=== PATIENT | female | born 1960 | race Caucasian/White ===

== ENCOUNTER 2016-12-21 23:42 | Emergency (ER) | payer OTHER ==
[~2016-12-21] VITALS: Ht 170.2 cm; Wt 70.8 kg
[2016-12-22] MEDS ORDERED: IBUPROFEN 600 MG TAB PO ONE (00:45)
[2016-12-22 01:10] LABS: Basophils # (auto) 0 uL; CONDITION Y; Eosinophils # (auto) 0 uL; Eosinophils % (auto) 0.1 % (0.0-7.0); Hematocrit 35.9 % (36.0-46.0); Hemoglobin 11.8 g/dL (12.2-16.2); Lymphocytes # (auto) 0.4 uL; Lymphocytes % (auto) 2.6 % (10.0-50.0); Mean Corpuscular Hemoglobin 29.6 pg (28.0-32.0); Mean Corpuscular Hgb Conc. 32.9 g/dL (32.0-36.0); Mean Corpuscular Volume 89.9 fL (80.0-100.0); Mean Platelet Volume 7.2 fL (7.4-10.4); Monocytes # (auto) 0.9 uL; Monocytes % (auto) 5.9 % (0.0-12.0); Neutrophils # (auto) 13.5 uL; Neutrophils % (auto) 91.4 % (37.0-80.0); Platelet Count (auto) 370 10^3/uL (140-450); Red Cell Distribution Width 15.6 % (11.6-16.0); White Blood Cell 14.8 10^3/uL (4.4-10.8)
[2016-12-22 01:20] LABS: Urine Bilirubin Negative (Negative); Urine Blood Negative /uL (Negative); Urine Color Yellow (Yellow); Urine Glucose Normal (Normal); Urine Mucus FEW (None Seen); Urine Nitrite Negative (Negative); Urine RBC <1 /hpf (0 - 4); Urine Urobilinogen Normal (Negative)
[2016-12-22 01:21] LABS: Urine Ketone 1+ (Negative)
[2016-12-22 01:26] LABS: INR 0.97 (0.9-1.15); Partial Thromboplastin Time 28.5 sec (22.64-33.71); Prothrombin Time 10.6 sec (9.37-12.3)
[2016-12-22 01:28] LABS: Albumin 2.9 g/dL (3.4-5.0); Anion Gap 8 (5-15); Blood Urea Nitrogen 15 mg/dL (7-18); Carbon Dioxide 28 mmol/L (21-32); Chloride 101 mmol/L (98-107); Glucose 123 mg/dL (74-106); Potassium 3.6 mmol/L (3.5-5.1); Sodium 137 mmol/L (136-145)
[2016-12-22 01:32] LABS: BUN/Creatinine Ratio 23.1; GFR African American 121 mL/min; GFR Non-African American 100 mL/min
[2016-12-22 01:37] LABS: B-Type Natriuretic Peptide 14.7 pg/mL (0-100); Temperature: 22.2 C (20.0-25.0)
[2016-12-22 01:43] LABS: Alkaline Phosphatase 121 U/L (45-117); Aspartate Aminotransferase 12 U/L (15-37); Bilirubin, Total 0.6 mg/dL (0.2-1.0); Total Protein 7.1 g/dL (6.4-8.2)
[2016-12-22 01:50] LABS: Allen Test Yes; Base Excess -0.2 mmol/L (-2.0-2.0); Blood 02Sat 89.2 % (96-100); Blood COHb 1.4 % (0.5-1.5); Blood MetHb 0.3 % (0.0-1.5); HCO3 23.7 mmol/L (22-26.0); HHb 10.6 % (0.0-5.0); MODE NASAL CANNULA; O2Hb 87.7 % (94.0-97.0); PCO2 36.4 mmHg (35.0-45.0); PCO2(T) 24.6 mmHg (35.0-45.0); PO2(T) 32.2 mmHg (80.0-100.0); Sample Type Arterial; pH 7.432 (7.350-7.450)
[2016-12-22] MEDS ORDERED: HYDROmorphone HCL 2 MG/ML VL IV ONE ×2 (02:00→05:45)
[2016-12-22] MEDS ORDERED: ONDANSETRON HCL 4 MG/2 ML VIAL IV ONE (02:00)
[2016-12-22] MEDS ORDERED: IOHEXOL 350 MG/ML 100ML IJ ONE (02:44)
[2016-12-22 06:10] VITALS: BP 102/76
== END 2016-12-22 07:01 | disposition home or self-care (01) ==
LOC: EDBD 23:42 → ER 12-22
DX: S42.002A Fracture of unspecified part of left clavicle, initial encounter for closed fracture (principal); S22.42XA Multiple fractures of ribs, left side, initial encounter for closed fracture; X58.XXXA Exposure to other specified factors, initial encounter; Y93.89 Activity, other specified; Y92.89 Other specified places as the place of occurrence of the external cause; Y99.8 Other external cause status; R07.89 Other chest pain; I10 Essential (primary) hypertension
CPT/HCPCS: 36415; 36600; 71010; 71275; 80053; 81001; 82805; 83605; 83735; 83880; 84484; 85025; 85379; 85610; 85730; 87040; 93005; 96374; 96375; 99285; J1170; J2405; Q9967

== ENCOUNTER 2024-09-15 17:06 | Inpatient (IN) | payer OTHER ==
[~2024-09-15] VITALS: Ht 167.6 cm; Wt 84.7 kg
--- NOTE | 2024-09-15 17:30 | ED.PDOC ---
Psychiatric HPI Comments 63 y/o F, BIBA, with PMHx of depression presents to the ED for CC of overdose. Per EMS, patient is coming from home where a family member called emergency medical personal due to patient ingesting an unknown amount of pills. EMS reports, possible ingestion of Morphine as it was recently prescribed; unknown time of ingestion. EMS comments, on possible stressor being husbands passing. Upon arrival to ED, patient was given 1mg of Narcan with no affect. No other symptoms or modifying factors present at this time due to patient being A&Ox2. Chief Complaint: Overdose Time Seen by MD: 17:00 Primary Care Provider: ELVIRA Lee Notes: Nurses Notes, Cleaning Team Member Notes, Medications, Allergies Information Source: Emergency Med Personnel Mode of Arrival: EMS Severity of Pain: None Severity of Mental Status: Moderate Severity of Symptoms: Moderate Timing: Hours Duration: Since onset Prehospital treatment: None Presents with: Other (ingestion, disorientation) Attempt: Ingestion Ingestion: Intentional, Drug(s) Ingested Current substance abuse: Unknown History of: Depression Quality: None Associated signs and symptoms: Depression Past Medical History PAST MEDICAL HISTORY: Depression, HTN Surgical History: Denies all surgeries ADULT CARE PROVIDER History: No Pertinent ADULT CARE PROVIDER History Family History Family History: Unknown Social History Smoker: Non-Smoker Alcohol: Denies ETOH Use Drugs: Denies Drug Use Lives In: Home Psychiatric: reports: suicidal Unable to Obtain due to: Other (A&OX2) Physical Exam General Appearance: Obese, Severe Distress, Other (Altered mental status) HEENT: Normal ENT Inspection, Pharynx Normal, TMs Normal Neck: Full Range of Motion, Non-Tender, Normal, Normal Inspection Respiratory: Chest Non-Tender, Lungs Clear, No Accessory Muscle Use, No Respiratory Distress, Normal Breath Sounds Cardiovascular: No Edema, No JVD, No Murmur, No Gallop, Normal Peripheral Pulses, Regular Rate/Rhythm Breast Exam: Deferred Gastrointestinal: No Organomegaly, Non Tender, No Pulsatile Mass, Normal Bowel Sounds, Soft Genitalia: Deferred Pelvic: Deferred Rectal: Deferred Extremities: No calf tenderness, Normal capillary refill, Pedal edema Musculoskeletal : Apperance: Normal Neurologic: customer contact specialist II-XII nml as Tested, Motor Weakness, No Sensory Deficits, Other (Altered mental status) Cerebellar Function: Unable to Test Reflexes: Normal Skin: Dry, Pallor, Warm Lymphatic: No Adenopathy EKG EKG : Pulse Rate (adult): 97 [place]: Normal Cardiac Rhythm: NSR Block: None ST: Nonsp Was a procedure done? Was a procedure done?: No Psych Differential Dx Psych. Differential Dx: Depression OD Differential Dx: Depression, Drug Overdose, Intentional, Suicidal Attempt X-Ray, Labs, Meds, VS Vital Signs Date Time Temp Pulse Resp B/P (MAP) Pulse Ox O2 Delivery O2 Flow Rate FiO2 09/15/24 18:17 97 09/15/24 17:58 98.5 83 15 144/74 (97) 95 98.5 09/15/24 17:58 83 15 95 Nasal Cannula* 2 28 09/15/24 17:20 97 09/15/24 17:15 98.9 101 10 149/79 (102) 95 98.9 Lab Test 09/15/24 17:43 Range/Units White Blood Count 7.3 4.4-10.8 10^3/uL Red Blood Count 5.43 H 4.0-5.20 10^6/uL Hemoglobin 13.6 12.2-16.2 g/dL Hematocrit 45.0 36.0-46.0 % Mean Corpuscular Volume 82.8 80.0-100.0 fL Mean Corpuscular Hemoglobin 25.0 L 28.0-32.0 pg Mean Corpuscular Hemoglobin Concent 30.2 L 32.0-36.0 g/dL Red Cell Distribution Width 15.8 H 11.8-14.3 % Platelet Count 163 140-450 10^3/uL Mean Platelet Volume 7.9 6.9-10.8 fL Neutrophils (%) (Auto) 73.5 37.0-80.0 % Lymphocytes (%) (Auto) 14.9 10.0-50.0 % Monocytes (%) (Auto) 11.3 0.0-12.0 % Eosinophils (%) (Auto) 0.0 0.0-7.0 % Basophils (%) (Auto) 0.3 0.0-2.0 % Neutrophils # (Auto) 5.3 1.6-8.6 10 ^3/uL Lymphocytes # (Auto) 1.1 0.4-5.4 10 ^3/uL Monocytes # (Auto) 0.8 0-1.3 10 ^3/uL Eosinophils # (Auto) 0 0-0.8 10 ^3/uL Basophils # (Auto) 0 0-0.2 10 ^3/uL Nucleated Red Blood Cells 0.2 % Sodium Level 137 136-145 mmol/L Potassium Level 4.8 3.5-5.1 mmol/L Chloride Level 102 98-107 mmol/L Carbon Dioxide Level 27 20-31 mmol/L Anion Gap 8 5-15 Blood Urea Nitrogen 19 9-23 mg/dL Creatinine 2.55 H 0.550-1.02 mg/dL Glomerular Filtration Rate Calc 20 >90 mL/min BUN/Creatinine Ratio 7.5 L 10.0-20.0 Serum Glucose 142 H 74-106 mg/dL Calcium Level 9.8 8.7-10.4 mg/dL Total Bilirubin 0.4 0.2-1.0 mg/dL Aspartate Amino Transferase (AST) 28 13-40 U/L Alanine Aminotransferase (ALT) 18 7-40 U/L Alkaline Phosphatase 59 46-116 U/L Total Protein 7.1 5.7-8.2 g/dL Albumin 4.4 3.2-4.8 g/dL Salicylates Level < 3.0 -30 mg/dL Acetaminophen Level < 2.0 L 10.0-20.0 UG/ML Plasma/Serum Blood Alcohol < 3.0 <10 mg/dL CT WITHOUT CONTRAST: IMPRESSION: 1. No acute intracranial process. The patient's CBC and chemistry panel are within normal limits The creatinine is 2.55 The acetaminophen level, salicylate level and alcohol level is negative The patient was being admitted. We contacted [place] because the patient was a [place] patient The authorization was given for admission The authorization it was given by Dr. Rockwell which is [id number] Images Reviewed?: Images reviewed and evaluated by me Time of 1ST Reevaluation: 17:30 Reevaluation 1ST: Unchanged Patient Education/Counseling: Pt Unresponsive Family Education/Counseling: No Family Present Departure 1 Departure Time of Disposition: 20:49 Impression: Primary Impression: Overdose Qualified Codes: T50.904A - Poisoning by unspecified drugs, medicaments and biological substances, undetermined, initial encounter Additional Impressions: Depression Qualified Codes: F32.A - Depression, unspecified Hypotension Qualified Codes: I95.9 - Hypotension, unspecified Disposition: 09 ADMITTED INPATIENT Admit to: Tele Condition: Fair Critical Care Note Critical Care Time?: Yes (35 min-critical care time only) Stability Stability form required: Yes Unstable for transfer: Telemetry monitoring (Telemetry monitoring required), ED Physician Assesment (Clinical assesment) Heart Score Heart Score: Heart Score Response (Comments) Value History N/A 0 EKG N/A 0 Age N/A 0 Risk Factors N/A 0 Troponin N/A 0 Total 0 I personally scribed for CARA NDIAYE MD ([email or web address]) on 09/15/24 at 17:30. Electronically submitted by Juliette Lopez ([email or web address]). I personally scribed for CARA NDIAYE MD ([email or web address]) on 09/15/24 at 18:38. Electronically submitted by Juliette Lopez ([email or web address]). CARA NDIAYE MD Sep 15, 2024 17:30
[2024-09-15 17:58] VITALS: PULSE 83; RESP 15; O2SAT 95
--- NOTE | 2024-09-15 17:59 | ECG ---
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
[2024-09-15 18:06] LABS: Basophils # (auto) 0 10 ^3/uL (0-0.2); Basophils % (auto) 0.3 % (0.0-2.0); Eosinophils # (auto) 0 10 ^3/uL (0-0.8); Hemoglobin 13.6 g/dL (12.2-16.2); Lymphocytes # (auto) 1.1 10 ^3/uL (0.4-5.4); Lymphocytes % (auto) 14.9 % (10.0-50.0); Mean Corpuscular Hgb Conc. 30.2 g/dL (32.0-36.0); Mean Corpuscular Volume 82.8 fL (80.0-100.0); Monocytes # (auto) 0.8 10 ^3/uL (0-1.3); Monocytes % (auto) 11.3 % (0.0-12.0); Neutrophils # (auto) 5.3 10 ^3/uL (1.6-8.6); Neutrophils % (auto) 73.5 % (37.0-80.0); Nucleated Red Blood Cells % 0.2 %; Platelet Count (auto) 163 10^3/uL (140-450); Red Blood Cells 5.43 10^6/uL (4.0-5.20); Red Cell Distribution Width 15.8 % (11.8-14.3); White Blood Cell 7.3 10^3/uL (4.4-10.8)
[2024-09-15 18:20] LABS: Alanine Aminotransferase 18 U/L (7-40); Albumin 4.4 g/dL (3.2-4.8); Alkaline Phosphatase 59 U/L (46-116); Anion Gap 8 (5-15); Aspartate Aminotransferase 28 U/L (13-40); BUN/Creatinine Ratio 7.5 (10.0-20.0); Bilirubin, Total 0.4 mg/dL (0.2-1.0); Blood Urea Nitrogen 19 mg/dL (9-23); Calcium 9.8 mg/dL (8.7-10.4); Carbon Dioxide 27 mmol/L (20-31); Chloride 102 mmol/L (98-107); Potassium 4.8 mmol/L (3.5-5.1); Sodium 137 mmol/L (136-145); Total Protein 7.1 g/dL (5.7-8.2)
[2024-09-15 18:26] LABS: Blood Alcohol < 3.0 mg/dL (<10); Glucose 142 mg/dL (74-106)
--- NOTE | 2024-09-15 18:34 | DVH ---
EXAM: CT HEAD WITHOUT CONTRAST; DATE: 09/15/2024 05:52 PM HISTORY: overdose COMPARISON: None TECHNIQUE: Axial images were obtained and reformatted in coronal and sagittal planes. All CT scans at this medical facility are performed using dose modulation techniques as appropriate t o a performed exam including the following: Automated exposure control was utilized; adjustment of th e MA and/or KV according to patient size; and use of iterative reconstruction technique. CT Dose: CTDI volume is 53.06 mGy. Dose-length product is 939.56 mGy*cm FINDINGS: Supratentorial Region: No evidence for large acute territorial ischemia. No intracranial hemorrhage is noted. Posterior Fossa: No acute abnormality. Brainstem: Unremarkable. Sellar/Suprasellar Region: Unremarkable. Ventricles, Cisterns, Sulci: Age-appropriate. Orbits: Unremarkable. Paranasal Sinuses: Unremarkable. Mastoid Air Cells: Unremarkable. Vasculature: Unremarkable. Bones/Soft Tissues: No acute abnormality. Other: None. IMPRESSION: 1. No acute intracranial process.
[2024-09-15 19:20] VITALS: PULSE 91; RESP 18; O2SAT 94
--- NOTE | 2024-09-15 23:27 | DVHHPRES ---
History of Present Illness Resident Creating Document: FRANSICO DOMINGUEZ RESIDENT History of Present Illness 63 year old female with PMH of depression presented to the ED with morphine overdose. She was alert and oriented but was sleepy, did not respond to the questions asked. Patient was given 1 mg Narcan by the EMS . As per ED physician, patient took unknown quantity of pills some morphine because her passed recently. pt later was given IV narcan, total dose of 3 mg after which patient got significantly alert and was agitated initially. Later patient had hallucinations and was in delirium. mentions currently doesnt have suicidal ideation but took morphine to kill herself. Past medical history Depression Past surgical history Unknown Social history Unknown Allergic history Aspirin, loratadine and thiopental Medication history unknown Review of Systems Review of Systems Not obtained as patient was sleepy and not responding to questions asked Allergies: Coded Allergies: Thiopental (Verified Allergy, Severe, TONGUE SWELLING , 12/22/16) Aspirin (Verified Allergy, Unknown, FELT VERY SICK , 12/22/16) Loratadine (Verified Allergy, Unknown, 12/22/16) Exam Vital Signs Vital Signs Date Time Temp Pulse Resp B/P (MAP) Pulse Ox O2 Delivery O2 Flow Rate FiO2 09/15/24 21:55 98.6 91 18 121/65 (83) 99 98.6 09/15/24 17:58 Nasal Cannula* 2 28 Exam Examination General Appearance: Alert, Oriented , drowsy, patient awake opens eyes and responds on tactile stimulus HEENT: EOMI Respiratory: Clear to auscultation, Normal air movement Cardiovascular: Regular rate, Normal S1, Normal S2 Abdominal: Normal bowel sounds Extremities: No cyanosis, No edema, Normal pulses, No tenderness/swelling Skin: No rashes, No breakdown Neuro: Sleepy Labs/Xrays Labs Test 09/15/24 17:43 Range/Units White Blood Count 7.3 4.4-10.8 10^3/uL Red Blood Count 5.43 H 4.0-5.20 10^6/uL Hemoglobin 13.6 12.2-16.2 g/dL Hematocrit 45.0 36.0-46.0 % Mean Corpuscular Volume 82.8 80.0-100.0 fL Mean Corpuscular Hemoglobin 25.0 L 28.0-32.0 pg Mean Corpuscular Hemoglobin Concent 30.2 L 32.0-36.0 g/dL Red Cell Distribution Width 15.8 H 11.8-14.3 % Platelet Count 163 140-450 10^3/uL Mean Platelet Volume 7.9 6.9-10.8 fL Neutrophils (%) (Auto) 73.5 37.0-80.0 % Lymphocytes (%) (Auto) 14.9 10.0-50.0 % Monocytes (%) (Auto) 11.3 0.0-12.0 % Eosinophils (%) (Auto) 0.0 0.0-7.0 % Basophils (%) (Auto) 0.3 0.0-2.0 % Neutrophils # (Auto) 5.3 1.6-8.6 10 ^3/uL Lymphocytes # (Auto) 1.1 0.4-5.4 10 ^3/uL Monocytes # (Auto) 0.8 0-1.3 10 ^3/uL Eosinophils # (Auto) 0 0-0.8 10 ^3/uL Basophils # (Auto) 0 0-0.2 10 ^3/uL Nucleated Red Blood Cells 0.2 % Sodium Level 137 136-145 mmol/L Potassium Level 4.8 3.5-5.1 mmol/L Chloride Level 102 98-107 mmol/L Carbon Dioxide Level 27 20-31 mmol/L Anion Gap 8 5-15 Blood Urea Nitrogen 19 9-23 mg/dL Creatinine 2.55 H 0.550-1.02 mg/dL Glomerular Filtration Rate Calc 20 >90 mL/min BUN/Creatinine Ratio 7.5 L 10.0-20.0 Serum Glucose 142 H 74-106 mg/dL Calcium Level 9.8 8.7-10.4 mg/dL Total Bilirubin 0.4 0.2-1.0 mg/dL Aspartate Amino Transferase (AST) 28 13-40 U/L Alanine Aminotransferase (ALT) 18 7-40 U/L Alkaline Phosphatase 59 46-116 U/L Total Protein 7.1 5.7-8.2 g/dL Albumin 4.4 3.2-4.8 g/dL Salicylates Level < 3.0 -30 mg/dL Acetaminophen Level < 2.0 L 10.0-20.0 UG/ML Plasma/Serum Blood Alcohol < 3.0 <10 mg/dL Assessment/Plan Assessment/Plan A and P # toxic encephalopathy due to morphine overdose, UTI -was given 1 mg Narcan followed by 2 mg Narcan after which patient became more alert -Close observation -ABG -Head CT -UDS --TSH, b12 and folate #Resp acidosis -due to opioid overdose #Suicidal ideation, mentions currently doesnt have suicidal ideation but took morphine to kill herself. #Depression -telepsych consult # urinary tract infection -IV ceftriaxone Urine culture #Delirium with hallucinations precautions : Keep room bright during the day, avoid vitals during the night unless urgent, keep room dark in the night, let patient sleep in the night. -Fall risk precautions. -Physical therapy. -Avoid Opioids and benzodiazepine. -given IV thiamine one time Case discussion with Dr Infante Plan discussed with: Other My Orders Orders - FRANSICO DOMINGUEZ RESIDENT Procedure Category Date Status Time Abg W/ Co-Ox RT 09/15/24 Logged 23:06 Admit ADMIT 09/15/24 Transmitted 23:06 Oxygen By Nasal RT 09/15/24 Transmitted Cannula 23:06 Stat Ekg For Chest REAGAN 09/15/24 In Process Pain 23:06 Notify Md Of Changes REAGAN 09/15/24 In Process From Base 23:06 Shoe [employer] Caser For REAGAN 09/15/24 In Process 24 Hours 23:06 Emergency Dysrhythmia REAGAN 09/15/24 In Process Protocol 23:06 Rhythm Strips Once REAGAN 09/15/24 In Process Every Shift 23:06 Chest Portable XY 09/15/24 Logged 23:13 Date of Service: Sep 15, 2024 Billing Provider: KEO INFANTE MD Common Visit Codes: [id number] INP/OBS CARE (HIGH) FRANSICO DOMINGUEZ RESIDENT Sep 15, 2024 23:27 KEO INFANTE MD Sep 16, 2024 19:14
[2024-09-16] VITALS (7 sets, daily range): BP systolic 130–175; BP diastolic 61–76; PULSE 69–101; RESP 17–18; TEMP 98.7–98.8; O2SAT 92–96
[2024-09-16] MEDS: NALOXONE HCL 1MG/ML 2ML SYRINGE IV ONE ×2 (00:11→00:44)
--- NOTE | 2024-09-16 00:36 | DVH ---
CHEST RADIOGRAPH Indication: AHRF Technique: Single frontal view of the chest was obtained COMPARISON: None FINDINGS / IMPRESSION: Lines and Tubes: None Lungs: Pulmonary vascular congestion. Mild subsegmental atelectasis/consolidation at left lung base. Pleura: No effusion. No pneumothorax. Cardiomediastinal contours: Mild cardiomegaly.
[2024-09-16 02:28] LABS: Urine Bacteria None Seen /hpf (None Seen)
[2024-09-16 02:46] LABS: Urine Blood Negative /uL (Negative); Urine Clarity Turbid (Clear); Urine Color Yellow (Yellow); Urine Hyaline Cast MANY /lpf (0 - 2); Urine Protein, UAD 1+ (Negative); Urine Specific Gravity 1.018 (1.001-1.035); Urine Squamous Epithelial Cell FEW /hpf (<5); Urine Urobilinogen Normal (Negative); Urine WBC 56 /HPF (0-5)
[2024-09-16 03:13] LABS: Amphetamine Screen, Urine Neg (NEGATIVE); Barbiturate Scree,Urine Neg (NEGATIVE); Benzodiazephine Screen, Urine Neg (NEGATIVE); Cannabinoid Screen, Urine Neg (NEGATIVE); Cocaine Screen, Urine Neg (NEGATIVE); Opiate Scree,Urine Pos (NEGATIVE); Phencyclidine Screen, Urine Neg (NEGATIVE)
[2024-09-16] MEDS: cefTRIAXone 1GM/50ML D5W 50 ML IV SCH (03:15)
[2024-09-16] MEDS: THIAMINE 100mg/ml INJ (200mg/2ml VIAL) IV ONE (04:49)
[2024-09-16] MEDS: HALOPERIDOL LACTATE 5 MG/ML INJ VIAL IM ONE (10:34)
[2024-09-16] MEDS: diphenhdrAMINE HCL 50 MG/1 ML VL IM ONE (10:36)
[2024-09-16 13:07] LABS: Base Excess 2.5 mmol/L (-2.0-3.0)
--- NOTE | 2024-09-16 14:36 | DVHDS2 ---
Discharge Summary Date of Admission Sep 15, 2024 at 23:06 Date of Discharge: Sep 16, 2024 Labs/Diagnostic Data: Laboratory Results Test 09/16/24 12:59 09/16/24 02:22 09/15/24 17:43 09/15/24 11:28 Blood Gas Specimen Type Arterial Blood Gas Sample Site Right radial Blood Gas Patient Temperature 37.0 Arterial Blood Date Drawn [id number] Arterial Blood pH 7.508 (7.350-7.450) Arterial Blood Partial Pressure CO2 32.1 mmHg (32.0-45.0) Arterial Blood Partial Pressure O2 98.0 mmHg (83.0-108.0) Arterial Blood HCO3 24.9 mmol/L (21.0-28.0) Arterial Blood Oxygen Saturation 97.6 % (94.0-98.0) Arterial Blood Base Excess 2.5 mmol/L (-2.0-3.0) Arterial Blood Oxyhemoglobin 96.3 % (94.0-98.0) Arterial Blood Carboxyhemoglobin 1.1 % (0.5-1.5) Arterial Blood Methemoglobin 0.2 % (0.0-1.5) Chirag Test Yes Blood Gas Total Hemoglobin 14.00 g/dL (12.0-16.0) Blood Gas Liter Flow 4.00 Blood Gas Modality Nasal cannula FiO2 % 36.0 Urine Color Yellow (Yellow) Urine Clarity Turbid (Clear) Urine pH 5.0 (5.0-9.0) Urine Specific [place] 1.018 (1.001-1.035) Urine Protein 1+ (Negative) Urine Ketones Trace (Negative) Urine Blood Negative /uL (Negative) Urine Nitrite Negative (Negative) Urine Bilirubin Negative (Negative) Urine Urobilinogen Normal mg/dL (Negative) Urine Leukocyte Esterase 1+ /uL (Negative) Urine RBC 2 /hpf (0 - 4) Urine Microscopic WBC 56 /HPF (0-5) Urine Squamous Epithelial Cells Few /hpf (<5) Urine Bacteria None seen /hpf (None Seen) Urine Hyaline Casts Many /lpf (0 - 2) Urine Granular Casts Few /lpf (0) Urine Glucose Normal mg/dL (Normal) Urine Opiates Screen Pos (NEGATIVE) Urine Fentanyl Screen Neg (NEGATIVE) Urine Barbiturates Screen Neg (NEGATIVE) Urine Phencyclidine Screen Neg (NEGATIVE) Urine Amphetamines Screen Neg (NEGATIVE) Urine Benzodiazepines Screen Neg (NEGATIVE) Urine Cocaine Screen Neg (NEGATIVE) Urine Cannabinoids Screen Neg (NEGATIVE) White Blood Count 7.3 10^3/uL (4.4-10.8) Red Blood Count 5.43 10^6/uL (4.0-5.20) Hemoglobin 13.6 g/dL (12.2-16.2) Hematocrit 45.0 % (36.0-46.0) Mean Corpuscular Volume 82.8 fL (80.0-100.0) Mean Corpuscular Hemoglobin 25.0 pg (28.0-32.0) Mean Corpuscular Hemoglobin Concent 30.2 g/dL (32.0-36.0) Red Cell Distribution Width 15.8 % (11.8-14.3) Platelet Count 163 10^3/uL (140-450) Mean Platelet Volume 7.9 fL (6.9-10.8) Neutrophils (%) (Auto) 73.5 % (37.0-80.0) Lymphocytes (%) (Auto) 14.9 % (10.0-50.0) Monocytes (%) (Auto) 11.3 % (0.0-12.0) Eosinophils (%) (Auto) 0.0 % (0.0-7.0) Basophils (%) (Auto) 0.3 % (0.0-2.0) Neutrophils # (Auto) 5.3 10 ^3/uL (1.6-8.6) Lymphocytes # (Auto) 1.1 10 ^3/uL (0.4-5.4) Monocytes # (Auto) 0.8 10 ^3/uL (0-1.3) Eosinophils # (Auto) 0 10 ^3/uL (0-0.8) Basophils # (Auto) 0 10 ^3/uL (0-0.2) Nucleated Red Blood Cells 0.2 % Sodium Level 137 mmol/L (136-145) Potassium Level 4.8 mmol/L (3.5-5.1) Chloride Level 102 mmol/L (98-107) Carbon Dioxide Level 27 mmol/L (20-31) Anion Gap 8 (5-15) Blood Urea Nitrogen 19 mg/dL (9-23) Creatinine 2.55 mg/dL (0.550-1.02) Glomerular Filtration Rate Calc 20 mL/min (>90) BUN/Creatinine Ratio 7.5 (10.0-20.0) Serum Glucose 142 mg/dL (74-106) Calcium Level 9.8 mg/dL (8.7-10.4) Total Bilirubin 0.4 mg/dL (0.2-1.0) Aspartate Amino Transferase (AST) 28 U/L (13-40) Alanine Aminotransferase (ALT) 18 U/L (7-40) Alkaline Phosphatase 59 U/L (46-116) Total Protein 7.1 g/dL (5.7-8.2) Albumin 4.4 g/dL (3.2-4.8) Thyroid Stimulating Hormone (TSH) 0.96 uIU/mL (0.55-4.78) Salicylates Level < 3.0 mg/dL (-30) Acetaminophen Level < 2.0 UG/ML (10.0-20.0) Plasma/Serum Blood Alcohol < 3.0 mg/dL (<10) Blood Gas Spontaneous Rate 16 Blood Gas Critical Value Read Back Yes Blood Gas Notified Whom Dr. jose m tong Blood Gas Notified Time [id number] Blood Gas Notified By Chris perez rcp Other Laboratory Tests 09/15/24 17:43 Brief Hx & Hospital Course: SEE DICTATED NOTE Condition at Discharge: Fair Final Diagnosis/Problems List ALOC Discharge Disposition: Acute Care Facility Discharge Instruct/Medications Diet: Regular Activity: No Restrictions, As Tolerated Follow Up/Referral: FU WITH [facility] Medications: PER JUL Discharge Statement: "Patient was advised to return to the ER or call 911 if any headaches, dizziness, shortness of breath, chest pain, abdominal pain, bleeding, fevers, or worsening of medical condition. Patient was counseled about treatment plan, medications, possible side effects, patientverbalized understanding. All questions were answered to the best of my ability. This discharge took greater then 30 minutes in planning, reviewing documentation, counseling the patient, and discussing with other team members." ASSESSMENT ASSESSMENT Assessment ALOC Date of Service: Sep 16, 2024 Billing Provider: JOCELINE SIMONS MD Common Visit Codes: 73177-XSS/OBS DISCH DAY >30min Secondary Visit Codes: [id number] CARE PLAN 30 MINUTES JOCELINE SIMONS MD Sep 16, 2024 14:36
[2024-09-16 15:22] LABS: Basophils # (auto) 0.1 10 ^3/uL (0-0.2); Basophils % (auto) 0.8 % (0.0-2.0); Eosinophils # (auto) 0 10 ^3/uL (0-0.8); Hematocrit 43.1 % (36.0-46.0); Hemoglobin 13.8 g/dL (12.2-16.2); Lymphocytes # (auto) 1.4 10 ^3/uL (0.4-5.4); Lymphocytes % (auto) 19.4 % (10.0-50.0); Mean Corpuscular Hemoglobin 25.5 pg (28.0-32.0); Mean Corpuscular Volume 79.8 fL (80.0-100.0); Monocytes # (auto) 1.1 10 ^3/uL (0-1.3); Monocytes % (auto) 15.1 % (0.0-12.0); Neutrophils # (auto) 4.7 10 ^3/uL (1.6-8.6); Neutrophils % (auto) 64.7 % (37.0-80.0); Platelet Count (auto) 165 10^3/uL (140-450); Red Cell Distribution Width 15.4 % (11.8-14.3); White Blood Cell 7.2 10^3/uL (4.4-10.8)
--- NOTE | 2024-09-16 15:36 | DVHDS ---
DATE OF DISCHARGE: 09/16/2024 DATE OF TRANSFER TO [facility]: 09/16/2024 HISTORY OF PRESENT ILLNESS: The patient is a 63-year-old lady who was admitted after she was found to be altered. HOSPITAL COURSE: The patient now admits to overdosing on morphine. The patient states that she has been depressed since the of her . The patient also was noted to have hallucinations. It is unclear by the rest of her medical history. The patient was noted to be in renal failure with a creatinine of 2.5. She also had possible urinary tract infection. The patient's tox screen was positive for opiates. The patient will now be transferred to [place] for further management. FINAL DIAGNOSES: * Encephalopathy, toxic. * Drug overdose with morphine. * Depression/bipolar disorder with hallucinations. * Acute renal failure, questionable vasomotor nephropathy. * Questionable UTI. * History of chronic pain. Time spent in discharge planning including paperwork was 39 minutes. ADVANCED CARE PLANNING: The patient is a full code. Time spent was 19 minutes. MD WOJCIECH Sorto/ESHA TID: [id number] RECEIPT: [id number]
[2024-09-16 15:39] LABS: Alanine Aminotransferase 17 U/L (7-40); Albumin 4.1 g/dL (3.2-4.8); Alkaline Phosphatase 57 U/L (46-116); Anion Gap 8 (5-15); Aspartate Aminotransferase 40 U/L (13-40); BUN/Creatinine Ratio 13.9 (10.0-20.0); Bilirubin, Total 0.5 mg/dL (0.2-1.0); Blood Urea Nitrogen 21 mg/dL (9-23); Calcium 9.5 mg/dL (8.7-10.4); Carbon Dioxide 28 mmol/L (20-31); Chloride 102 mmol/L (98-107); Glucose 112 mg/dL (74-106); Magnesium 2.1 mg/dL (1.6-2.6); Potassium 4.4 mmol/L (3.5-5.1); Sodium 138 mmol/L (136-145); Total Protein 6.6 g/dL (5.7-8.2)
[2024-09-16] MEDS: SODIUM CHLORIDE 0.9% 1,000 ML IV SCH (17:09)
[2024-09-16] MEDS ORDERED: TRAZ1TAB12 PO (19:22)
[2024-09-17 05:00] VITALS: BP 175/78; PULSE 76; RESP 19; TEMP 98.5; O2SAT 92
[2024-09-17] MEDS: cloNIDine HCL 0.1 MG TAB PO ONE (05:55)
[2024-09-17 08:00] VITALS: PULSE 94
[2024-09-17 08:00] LABS: Basophils # (auto) 0 10 ^3/uL (0-0.2); Eosinophils # (auto) 0 10 ^3/uL (0-0.8); Lymphocytes # (auto) 0.9 10 ^3/uL (0.4-5.4); Monocytes # (auto) 0.7 10 ^3/uL (0-1.3); Neutrophils % (auto) 65.2 % (37.0-80.0)
[2024-09-17 08:04] LABS: Basophils % (auto) 0.3 % (0.0-2.0); Eosinophils % (auto) 0.2 % (0.0-7.0); Hematocrit 41.2 % (36.0-46.0); Hemoglobin 13.4 g/dL (12.2-16.2); Lymphocytes % (auto) 19.5 % (10.0-50.0); Mean Corpuscular Hemoglobin 25.9 pg (28.0-32.0); Mean Corpuscular Hgb Conc. 32.7 g/dL (32.0-36.0); Mean Corpuscular Volume 79.2 fL (80.0-100.0); Monocytes % (auto) 14.8 % (0.0-12.0); Nucleated Red Blood Cells % 0.2 %; Platelet Count (auto) 173 10^3/uL (140-450); Red Cell Distribution Width 15.6 % (11.8-14.3); White Blood Cell 4.7 10^3/uL (4.4-10.8)
[2024-09-17 08:18] LABS: Alanine Aminotransferase 16 U/L (7-40); Albumin 4.1 g/dL (3.2-4.8); Alkaline Phosphatase 50 U/L (46-116); Anion Gap 10 (5-15); Aspartate Aminotransferase 33 U/L (13-40); Bilirubin, Total 0.5 mg/dL (0.2-1.0); Blood Urea Nitrogen 17 mg/dL (9-23); Calcium 9.7 mg/dL (8.7-10.4); Carbon Dioxide 26 mmol/L (20-31); Chloride 103 mmol/L (98-107); Potassium 3.8 mmol/L (3.5-5.1); Sodium 139 mmol/L (136-145); Total Protein 6.6 g/dL (5.7-8.2)
[2024-09-17 08:20] LABS: Glucose 120 mg/dL (74-106)
[2024-09-17 08:26] LABS: BUN/Creatinine Ratio 14.8 (10.0-20.0)
[2024-09-17 08:56] VITALS: BP 178/77; PULSE 91; RESP 20; TEMP 99.2; O2SAT 97
--- NOTE | 2024-09-17 11:44 | DVHINCON2 ---
Date of Service if different f: Sep 17, 2024 Consultation ([facility]) Labs Laboratory Tests Test 09/15/24 11:28 09/15/24 17:43 09/16/24 02:22 09/16/24 12:59 Blood Gas Spontaneous Rate 16 Blood Gas Critical Value Read Back Yes Blood Gas Notified Whom Dr. jose m tong Blood Gas Notified Time [id number] Blood Gas Notified By Chris perez architecture drafter Thyroid Stimulating Hormone (TSH) 0.96 uIU/mL (0.55-4.78) Salicylates Level < 3.0 mg/dL (-30) Acetaminophen Level < 2.0 UG/ML (10.0-20.0) Plasma/Serum Blood Alcohol < 3.0 mg/dL (<10) Urine Color Yellow (Yellow) Urine Clarity Turbid (Clear) Urine pH 5.0 (5.0-9.0) Urine Specific [place] 1.018 (1.001-1.035) Urine Protein 1+ (Negative) Urine Ketones Trace (Negative) Urine Blood Negative /uL (Negative) Urine Nitrite Negative (Negative) Urine Bilirubin Negative (Negative) Urine Urobilinogen Normal mg/dL (Negative) Urine Leukocyte Esterase 1+ /uL (Negative) Urine RBC 2 /hpf (0 - 4) Urine Microscopic WBC 56 /HPF (0-5) Urine Squamous Epithelial Cells Few /hpf (<5) Urine Bacteria None seen /hpf (None Seen) Urine Hyaline Casts Many /lpf (0 - 2) Urine Granular Casts Few /lpf (0) Urine Glucose Normal mg/dL (Normal) Urine Opiates Screen Pos (NEGATIVE) Urine Fentanyl Screen Neg (NEGATIVE) Urine Barbiturates Screen Neg (NEGATIVE) Urine Phencyclidine Screen Neg (NEGATIVE) Urine Amphetamines Screen Neg (NEGATIVE) Urine Benzodiazepines Screen Neg (NEGATIVE) Urine Cocaine Screen Neg (NEGATIVE) Urine Cannabinoids Screen Neg (NEGATIVE) Blood Gas Specimen Type Arterial Blood Gas Sample Site Right radial Blood Gas Patient Temperature 37.0 Arterial Blood Date Drawn [id number] Arterial Blood pH 7.508 (7.350-7.450) Arterial Blood Partial Pressure CO2 32.1 mmHg (32.0-45.0) Arterial Blood Partial Pressure O2 98.0 mmHg (83.0-108.0) Arterial Blood HCO3 24.9 mmol/L (21.0-28.0) Arterial Blood Oxygen Saturation 97.6 % (94.0-98.0) Arterial Blood Base Excess 2.5 mmol/L (-2.0-3.0) Arterial Blood Oxyhemoglobin 96.3 % (94.0-98.0) Arterial Blood Carboxyhemoglobin 1.1 % (0.5-1.5) Arterial Blood Methemoglobin 0.2 % (0.0-1.5) Chirag Test Yes Blood Gas Total Hemoglobin 14.00 g/dL (12.0-16.0) Blood Gas Liter Flow 4.00 Blood Gas Modality Nasal cannula FiO2 % 36.0 Test 09/16/24 15:10 09/17/24 06:23 Lactic Acid Level 0.8 mmol/L (0.4-2.0) Magnesium Level 2.1 mg/dL (1.6-2.6) White Blood Count 4.7 10^3/uL (4.4-10.8) Red Blood Count 5.20 10^6/uL (4.0-5.20) Hemoglobin 13.4 g/dL (12.2-16.2) Hematocrit 41.2 % (36.0-46.0) Mean Corpuscular Volume 79.2 fL (80.0-100.0) Mean Corpuscular Hemoglobin 25.9 pg (28.0-32.0) Mean Corpuscular Hemoglobin Concent 32.7 g/dL (32.0-36.0) Red Cell Distribution Width 15.6 % (11.8-14.3) Platelet Count 173 10^3/uL (140-450) Mean Platelet Volume 8.3 fL (6.9-10.8) Neutrophils (%) (Auto) 65.2 % (37.0-80.0) Lymphocytes (%) (Auto) 19.5 % (10.0-50.0) Monocytes (%) (Auto) 14.8 % (0.0-12.0) Eosinophils (%) (Auto) 0.2 % (0.0-7.0) Basophils (%) (Auto) 0.3 % (0.0-2.0) Neutrophils # (Auto) 3.0 10 ^3/uL (1.6-8.6) Lymphocytes # (Auto) 0.9 10 ^3/uL (0.4-5.4) Monocytes # (Auto) 0.7 10 ^3/uL (0-1.3) Eosinophils # (Auto) 0 10 ^3/uL (0-0.8) Basophils # (Auto) 0 10 ^3/uL (0-0.2) Nucleated Red Blood Cells 0.2 % Sodium Level 139 mmol/L (136-145) Potassium Level 3.8 mmol/L (3.5-5.1) Chloride Level 103 mmol/L (98-107) Carbon Dioxide Level 26 mmol/L (20-31) Anion Gap 10 (5-15) Blood Urea Nitrogen 17 mg/dL (9-23) Creatinine 1.15 mg/dL (0.550-1.02) Glomerular Filtration Rate Calc 53 mL/min (>90) BUN/Creatinine Ratio 14.8 (10.0-20.0) Serum Glucose 120 mg/dL (74-106) Calcium Level 9.7 mg/dL (8.7-10.4) Total Bilirubin 0.5 mg/dL (0.2-1.0) Aspartate Amino Transf (AST/SGOT) 33 U/L (13-40) Alanine Aminotransferase (ALT/SGPT) 16 U/L (7-40) Alkaline Phosphatase 50 U/L (46-116) Total Protein 6.6 g/dL (5.7-8.2) Albumin 4.1 g/dL (3.2-4.8) Appetite: Fair Appearance: Stated age, Groomed Behavioral: Cooperative Eye contact: Appropriate Speech: WNL Affect: Mood Congruent Mood: Depressed, Anxious Thought processes: Linear/Goal-directed Thought content: WNL Suicidal ideations: Absent Homicidal ideations: Absent Orientation: Person, Place, Time, Situation Memory intact: Recent Intellect: Average Abstractability: WNL Concentration: Adequate Attention: Adequate Judgement: WNL Insight: Fair Vitals Vital Signs Date Time Temp Pulse Resp B/P (MAP) Pulse Ox O2 Delivery O2 Flow Rate FiO2 09/17/24 08:56 99.2 91 20 178/77 (110) 97 99.2 09/17/24 08:00 Room Air* 0 21 Current medications Current Medications Medications Dose Ordered Sig/Sarah Route Start Time Stop Time Status Last Admin Dose Admin Ceftriaxone Sodium 50 ml @ 100 mls/hr DAILY@0300 IV 09/16/24 03:00 09/17/24 02:48 100 MLS/HR Sodium Chloride 1,000 ml @ 75 mls/hr [id number] IV 09/16/24 14:45 09/16/24 17:09 75 MLS/HR Medication adjusted: No Diagnosis: MDD, unspecified anxiety disorder Plan : This is a 63-year-old female with hx of depression and recent suicide attempt She is a [facility] pt and pending transfer Recommend to continue transfer to [facility] for stabilization and treatment for recent suicide attempt. Continue current psychotropic regime History of Present Illness Reason for Consult : recent suicide attempt with morphine HPI : This is 63-year-old female with prior hx of depression and anxiety presented here after OD on Morphine and Sparks tablets. Patient is evaluation via telepsychiatry, she reports recently completed suicide 8 months ago and she has been more depressed and life did not make sense without him. She feels depressed. She attempt OD with ingesting her prescription of Morphine 7.5mg and Sparks 5mg, she ingested about 20 pills altogether. She now denies suicidal/homicidal ideation. She denies auditory/visual hallucinations or paranoid thoughts. She does say she wants to go home because wants to compete in the horse race tomorrow. She does not show up, she will lose. She regrets her actions and reports wanting to live and feel better. She has been having poor sleep and appetite. Past Psychiatric History : She has prior psych admission and hold, 4 month ago for suicidal ideation. She denies other suicide attempts. She does see a psych iatrist and therapist at [facility] weekly. She is prescribed Cymbalta and Trazodone, unknown dose and reports compliance. Past Medical History : Per history and physical Social History : She lives alone since 's passing. She does have a friend that will be staying with her. She denies any known family history. She has no children. 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 NICOLE BABCOCK DNP Sep 17, 2024 11:44
[2024-09-17 13:00] VITALS: BP 154/58; PULSE 85; RESP 18; TEMP 98.4; O2SAT 96
--- NOTE | 2024-09-17 15:19 | DVHPN2 ---
Subjective Patient denies any symptoms and states that she wants to go home. Reviewed: Care Plan, H&P, Medications, Previous Orders Changes from previous H/P or p: No Changes General: Per HPI Objective Vitals Vital Signs Date Time Temp Pulse Resp B/P (MAP) Pulse Ox O2 Delivery O2 Flow Rate FiO2 09/17/24 13:00 98.4 85 18 154/58 (90) 96 98.4 09/17/24 08:00 Room Air* 0 21 Intake/Output Intake and Output 09/17/24 07:00 Intake Total 700 ml Output Total 1750 ml Balance -1050 ml Intake Oral 700 ml Output Urine Total 1750 ml General Appearance: Alert, Oriented X3, Cooperative, No acute distress HEENT: Atraumatic, PERRLA Cardiovascular: Normal S1, Normal S2 Abdomen: Normal bowel sounds, No tenderness Musculoskeletal: Normal sensory function, Normal motor function Extremities: No clubbing, No cyanosis, No edema, Normal pulses, No tenderness/swelling Neuro: Normal gait, Normal speech Skin: Dry, Intact Psych/Mental Status: Mental status NL, Mood NL Medications Current Medications Medications Dose Ordered Sig/Sarah Route Start Time Stop Time Status Last Admin Dose Admin Ceftriaxone Sodium 50 ml @ 100 mls/hr DAILY@0300 IV 09/16/24 03:00 09/17/24 02:48 100 MLS/HR Sodium Chloride 1,000 ml @ 75 mls/hr [id number] IV 09/16/24 14:45 09/16/24 17:09 75 MLS/HR Laboratory Results Laboratory Tests 09/17/24 06:23 Chemistry Test 09/17/24 06:23 Albumin 4.1 g/dL (3.2-4.8) Calcium Level 9.7 mg/dL (8.7-10.4) Total Protein 6.6 g/dL (5.7-8.2) LFT Test 09/17/24 06:23 Alanine Aminotransferase (ALT) 16 U/L (7-40) Alkaline Phosphatase 50 U/L (46-116) Aspartate Amino Transferase (AST) 33 U/L (13-40) Total Bilirubin 0.5 mg/dL (0.2-1.0) Urinalysis Test 09/16/24 02:22 Urine Color Yellow (Yellow) Urine Clarity Turbid (Clear) H Urine pH 5.0 (5.0-9.0) Urine Specific [place] 1.018 (1.001-1.035) Urine Protein 1+ (Negative) H Urine Ketones Trace (Negative) Urine Blood Negative /uL (Negative) Urine Nitrite Negative (Negative) Urine Bilirubin Negative (Negative) Urine Urobilinogen Normal mg/dL (Negative) Urine Leukocyte Esterase 1+ /uL (Negative) Urine RBC 2 /hpf (0 - 4) Urine Microscopic WBC 56 /HPF (0-5) H Urine Squamous Epithelial Cells Few /hpf (<5) Urine Bacteria None seen /hpf (None Seen) Urine Hyaline Casts Many /lpf (0 - 2) Urine Granular Casts Few /lpf (0) Urine Glucose Normal mg/dL (Normal) Labs and/or images reviewed: Labs reviewed by me, Image(s) reviewed by me Assessment/Plan Assessment/Plan Impression: * Encephalopathy, toxic. * Drug overdose with morphine. * Depression/bipolar disorder with hallucinations. * Acute renal failure, questionable vasomotor nephropathy. * Questionable UTI. * History of chronic pain. Plan: -psychiatry consultation: Recommendations reviewed. Discussed this with the patient that she should continue with plan of care with Psychiatry per [facility]. Patient was states that she wants to leave. At this time discharge will not occur and agree with continued efforts to transfer patient to [facility]. Patient may leave against medical advice. -continue antidepressants/antipsychotics per Psychiatry -hold IV narcotics Total time spent with patient discussing and formulating plan of care: 35 minutes. This medical document was created using an electronic medical record system with [employer] dictation system. Although this document has been carefully reviewed, there may still be some phonetic and typographical errors. These areas are purely typographical due to imperfections of the software programs, and do not reflect any compromise in the patient's medical care. Plan discussed with: Patient, Other (RN) My Orders Orders - HÉCTOR LANIER NP Procedure Category Date Status Time Discontinue [place] [facility] 09/17/24 In Process Catheter 12:36 Date of Service: Sep 17, 2024 Billing Provider: HÉCTOR LANIER NP Common Visit Codes: [id number] INP/OBS CARE(HIGH) HÉCTOR LANIER NP Sep 17, 2024 15:19
== END 2024-09-17 14:46 | disposition left against medical advice (07) | DRG 917 ==
LOC: EDBD 17:06 → EDUNIT# 17:06 → ER 17:06 → OVERFLOW 23:06 → TELE-EAST 09-16 18:37
PROVIDERS: ADMIT Nurse Practitioner Acute Care; ATTEND Nurse Practitioner Acute Care
DX: T40.2X1A Poisoning by other opioids, accidental (unintentional), initial encounter (principal); G92.8 Other toxic encephalopathy; N17.0 Acute kidney failure with tubular necrosis; N39.0 Urinary tract infection, site not specified; E87.29 Other acidosis; R45.851 Suicidal ideations; F31.9 Bipolar disorder, unspecified; Z53.29 Procedure and treatment not carried out because of patient's decision for other reasons; I10 Essential (primary) hypertension; G89.29 Other chronic pain; F41.9 Anxiety disorder, unspecified; Z79.899 Other long term (current) drug therapy; Y92.89 Other specified places as the place of occurrence of the external cause
CPT/HCPCS: 36415; 36600; 70450; 71045; 80053; 80307; 80320; 80329; 81001; 82805; 83605; 83735; 84443; 85025; 93005; 96374; 96375; 96376; 99291; G0378